=== PATIENT | male | born 1995 | race Caucasian/White ===

== ENCOUNTER 2019-06-12 13:15 | Emergency (ER) | payer OTHER ==
[2019-06-12] MEDS: LIDOCAINE 2% (MDV) 20 ML INJ INJ (16:02)
[2019-06-12] MEDS: IBUPROFEN 800 MG TAB PO (16:02)
== END 2019-06-12 18:04 | disposition home or self-care (01) ==
LOC: FTE 18:04
DX: S01.81XA Laceration without foreign body of other part of head, initial encounter (principal); V00.131A Fall from skateboard, initial encounter; Y92.9 Unspecified place or not applicable
CPT/HCPCS: 12011; 99282-25